=== PATIENT | female | born 1975 | race Caucasian/White ===

== ENCOUNTER → 2016-11-29 | Outpatient (CLI) | payer MEDICARE, MEDICAID | LOC: RAD 10:35 | PROVIDERS: ATTEND Family Medicine | DX: N82.3 Fistula of vagina to large intestine (principal) | CPT/HCPCS: 76856 ==

== ENCOUNTER → 2016-12-13 | Outpatient (CLI) | payer MEDICARE, MEDICAID | LOC: RT 13:38 | PROVIDERS: ATTEND Family Medicine | DX: R09.02 Hypoxemia (principal) | CPT/HCPCS: 94762 ==